=== PATIENT | female | born 1975 | race Caucasian/White ===

== ENCOUNTER 2020-04-29 10:15 | Emergency (ER) | payer SELFPAY ==
[2020-04-29] MEDS ORDERED: Lorazepam 2 MG/ML VIAL ONE (11:07)
[2020-04-29] MEDS ORDERED: Ondansetron PF 4 MG/2 ML Vial ONE (11:07)
[2020-04-29 11:13] LABS: Hemoglobin 6.9 g/dL (12.0-16.0); Mean Corpuscular HGB CONC 29.7 g/dL (32.0-36.0); Mean Corpuscular Hemoglobin 23.6 pg (27.0-31.0); Mean Corpuscular Volume 79.3 fL (78.0-98.0); Platelet Count 155 thou/uL (130-400); RBC Distribution Width 18.9 % (11.5-14.5); Red Blood Cell (RBC) Count 2.92 mill/uL (4.20-5.40); White Blood Cell (WBC) Count 6.3 thou/uL (4.8-10.8)
[2020-04-29 11:20] LABS: ALT (SGPT) 19 U/L (8-55); AST (SGOT) 9 U/L (5-34); Albumin 4.2 g/dL (3.5-5.0); Alkaline Phosphatase 49 U/L (40-110); Anion Gap 17 mmol/L (10-20); BUN (Urea Nitrogen) 14 mg/dL (7.0-18.7); Bilirubin, Total 0.6 mg/dL (0.2-1.2); Calc. Creatinine Clearance 0 mL/min (70-130); Calcium 8.9 mg/dL (7.8-10.44); Carbon Dioxide 19 mmol/L (22-29); Chloride 108 mmol/L (98-107); Estimated GFR-MDRD 89; Globulin 2.9 g/dL (2.4-3.5); Glucose 94 mg/dL (70-105); Potassium 3.7 mmol/L (3.5-5.1); Protein, Total 7.1 g/dL (6.0-8.3); Sodium 140 mmol/L (136-145)
[2020-04-29 11:40] LABS: #Basophils 0.1 thou/uL (0.0-0.2); #Eosinphils 0.1 thou/uL (0.0-0.7); #Lymphocytes 1.1 thou/uL (1.20-3.40); #Monocytes 0.4 thou/uL (0.11-0.59); #Neutrophils 4.6 thou/uL (1.40-6.50); %Basophils 0.8 % (0.0-1.0); %Eosinophils 1.7 % (0.0-10.0); %Lymphocytes 18.1 % (21.0-51.0); %Monocytes 5.8 % (0.0-10.0); %Neutrophils 73.5 % (42.0-75.0); Anisocytosis SLIGHT = 6-15 cells (100X) (0-5/hpf); Hypochromia SLIGHT = 6-15 cells (100X) (0-5/hpf); MDiff Complete? YES; Macrocytosis SLIGHT = 6-15 cells (100X) (0-5/hpf); Microcytosis SLIGHT = 6-15 cells (100X) (0-5/hpf); Platelet Morphology Comment Appears Adequate; Polychromasia SLIGHT = 2-3 cells (100X) (0-2/hpf); Reflex for Review?? NO; Stomatocytes SLIGHT = 2-5 cells (100X) (0-1/hpf)
--- NOTE | 2020-04-29 19:50 | RAD ---
PORTABLE CHEST: 04/29/20 No prior films were available for comparison. The heart is mildly enlarged but there are no congestiv e changes or pleural effusions. There is no edema. No lobar pulmonary infiltrates were seen. The medi astinum was unremarkable. IMPRESSION: Mild cardiomegaly. POS: HOME
== END 2020-04-29 13:12 | disposition short-term general hospital (02) ==
LOC: BURERS 10:15
DX: D62 Acute posthemorrhagic anemia (principal); F41.9 Anxiety disorder, unspecified; I10 Essential (primary) hypertension; F43.10 Post-traumatic stress disorder, unspecified; Z87.891 Personal history of nicotine dependence
CPT/HCPCS: 36415; 71045; 80053; 83880; 84484; 85025; 86900; 86901; 93005; 94760; 96361; 96374; 96375; J2060; J2405

== ENCOUNTER 2020-05-02 17:29 | Emergency (ER) | payer SELFPAY ==
[2020-05-02 18:37] LABS: #Basophils 0.1 thou/uL (0.0-0.2); #Eosinphils 0.1 thou/uL (0.0-0.7); #Lymphocytes 1.6 thou/uL (1.20-3.40); #Monocytes 0.6 thou/uL (0.11-0.59); #Neutrophils 8.9 thou/uL (1.40-6.50); %Basophils 0.7 % (0.0-1.0); %Eosinophils 0.8 % (0.0-10.0); %Neutrophils 79.5 % (42.0-75.0); Hemoglobin 8.6 g/dL (12.0-16.0); Mean Corpuscular HGB CONC 29.5 g/dL (32.0-36.0); Mean Corpuscular Hemoglobin 24.3 pg (27.0-31.0); Mean Corpuscular Volume 82.4 fL (78.0-98.0); Mean Platelet Volume 13.9 fL (7.4-10.4); Platelet Count 160 thou/uL (130-400); RBC Distribution Width 20.3 % (11.5-14.5); Red Blood Cell (RBC) Count 3.52 mill/uL (4.20-5.40); White Blood Cell (WBC) Count 11.2 thou/uL (4.8-10.8)
[2020-05-02 18:38] LABS: ALT (SGPT) 21 U/L (8-55); AST (SGOT) 18 U/L (5-34); Albumin 4.1 g/dL (3.5-5.0); Alkaline Phosphatase 55 U/L (40-110); Anion Gap 19 mmol/L (10-20); BUN (Urea Nitrogen) 18 mg/dL (7.0-18.7); Bilirubin, Total 0.9 mg/dL (0.2-1.2); CK (CPK) 31 U/L (29-168); Calc. Creatinine Clearance 0 mL/min (70-130); Calcium 9.4 mg/dL (7.8-10.44); Carbon Dioxide 19 mmol/L (22-29); Chloride 103 mmol/L (98-107); Estimated GFR-MDRD 83; Globulin 2.8 g/dL (2.4-3.5); Glucose 151 mg/dL (70-105); Potassium 3.6 mmol/L (3.5-5.1); Protein, Total 6.9 g/dL (6.0-8.3); Sodium 137 mmol/L (136-145)
[2020-05-02 18:51] LABS: Anisocytosis MODERATE=16-30 cells (100X) (0-5/hpf); MDiff Complete? YES; Platelet Morphology Comment Appears Adequate
[2020-05-02] MEDS ORDERED: Clindamycin/D5W 900 mg/50 ml Premix Bag ONE ×2 (19:23→19:24)
[2020-05-02] MEDS ORDERED: Sulfameth/Trimethoprim DS 800-160mg TAB ONE (19:24)
--- NOTE | 2020-05-03 04:57 | RAD ---
AP PORTABLE CHEST: 05/02/20 1754 HOURS COMPARISON: 04/29/2020 FINDINGS: The heart is mildly enlarged but no more so than before. There is no vascular congestion, edema or pl eural effusion. The lungs are clear. The mediastinum appears normal. IMPRESSION: No acute thoracic findings. POS: HOME
== END 2020-05-02 20:20 | disposition home or self-care (01) ==
LOC: BURERS 17:29
DX: L03.113 Cellulitis of right upper limb (principal); D50.0 Iron deficiency anemia secondary to blood loss (chronic); R07.89 Other chest pain; I10 Essential (primary) hypertension; F43.10 Post-traumatic stress disorder, unspecified; Z79.899 Other long term (current) drug therapy
CPT/HCPCS: 71045; 80053; 82550; 84484; 85025; 86140; 93005; 94760; 96365; J3490

== ENCOUNTER 2020-11-26 16:53 | Emergency (ER) | payer OTHER ==
[2020-11-26] MEDS ORDERED: Boostrix 0.5 ML (Tdap) VIAL ONE (17:18)
== END 2020-11-26 17:54 | disposition home or self-care (01) ==
LOC: BURERS 16:53
DX: S61.217A Laceration without foreign body of left little finger without damage to nail, initial encounter (principal); D50.9 Iron deficiency anemia, unspecified; I10 Essential (primary) hypertension; Z23 Encounter for immunization; W26.0XXA Contact with knife, initial encounter
CPT/HCPCS: 12001; 90471; 90715

== ENCOUNTER 2021-03-04 17:24 | Emergency (ER) | payer OTHER | END 2021-03-04 18:06 | disposition left against medical advice (07) | LOC: BURERS 17:24 | DX: Z53.21 Procedure and treatment not carried out due to patient leaving prior to being seen by health care provider (principal) ==

== ENCOUNTER 2021-11-18 22:13 | Emergency (ER) | payer OTHER ==
[2021-11-18] MEDS ORDERED: Ketorolac Tromethamine 30 MG/ML VIAL ONE (23:00)
[2021-11-18] MEDS ORDERED: Aspirin Chewable 81 MG TAB ONE (23:14)
[2021-11-18 23:15] LABS: ALT (SGPT) 15 U/L (8-55); AST (SGOT) 11 U/L (5-34); Albumin 4.2 g/dL (3.5-5.0); Alkaline Phosphatase 48 U/L (40-110); Anion Gap 17 mmol/L (10-20); BUN (Urea Nitrogen) 19 mg/dL (7.0-18.7); Bilirubin, Total 0.8 mg/dL (0.2-1.2); Calc. Creatinine Clearance 0 mL/min (70-130); Calcium 9.3 mg/dL (7.8-10.44); Carbon Dioxide 17 mmol/L (22-29); Chloride 107 mmol/L (98-107); Globulin 3.1 g/dL (2.4-3.5); Glucose 112 mg/dL (70-105); Potassium 3.5 mmol/L (3.5-5.1); Protein, Total 7.3 g/dL (6.0-8.3); Sodium 137 mmol/L (136-145)
[2021-11-18 23:24] LABS: #Basophils 0.1 thou/uL (0.0-0.2); #Eosinphils 0.1 thou/uL (0.0-0.7); #Lymphocytes 2.1 thou/uL (1.20-3.40); #Monocytes 0.8 thou/uL (0.11-0.59); #Neutrophils 5.2 thou/uL (1.40-6.50); %Basophils 1.2 % (0.0-1.0); %Eosinophils 1.5 % (0.0-10.0); %Lymphocytes 25.4 % (21.0-51.0); %Monocytes 9.4 % (0.0-10.0); %Neutrophils 62.5 % (42.0-75.0); Hemoglobin 10.7 g/dL (12.0-16.0); Mean Corpuscular HGB CONC 31.9 g/dL (32.0-36.0); Mean Corpuscular Hemoglobin 22.7 pg (27.0-31.0); Mean Platelet Volume 14.7 fL (7.4-10.4); Platelet Count 179 thou/uL (130-400); RBC Distribution Width 16.7 % (11.5-14.5); Red Blood Cell (RBC) Count 4.72 mill/uL (4.20-5.40); White Blood Cell (WBC) Count 8.3 thou/uL (4.8-10.8)
[2021-11-18 23:34] LABS: Large Platelets SLIGHT; MDiff Complete? YES; Microcytosis MODERATE=15-30 cells (100X) (0-5/hpf); Platelet Morphology Comment Appears Adequate
[2021-11-19] MEDS ORDERED: cloNIDine 0.1 MG TAB ONE
== END 2021-11-19 00:11 | disposition home or self-care (01) ==
LOC: BURERS 22:13
DX: R07.89 Other chest pain (principal); I10 Essential (primary) hypertension; D50.9 Iron deficiency anemia, unspecified; Z79.899 Other long term (current) drug therapy
CPT/HCPCS: 36415; 71045; 80053; 84484; 85025; 85379; 93005; 94760; J1885

== ENCOUNTER 2022-06-10 06:22 | Emergency (ER) | payer OTHER ==
[2022-06-10] MEDS ORDERED: Lidocaine 1% (PF) 30 ML VIAL ONE (07:15)
[2022-06-10] MEDS ORDERED: Lidocaine 1% PF 5 ML VIAL ONE ×2 (07:15→07:20)
[2022-06-10] MEDS ORDERED: Bacitracin 1 PK ONE (08:21)
== END 2022-06-10 08:55 | disposition home or self-care (01) ==
LOC: BURERS 06:22
DX: S60.453A Superficial foreign body of left middle finger, initial encounter (principal); W45.8XXA Other foreign body or object entering through skin, initial encounter
CPT/HCPCS: 10120; J2001